=== PATIENT | female | born 2000 | race African-American/Black ===

== ENCOUNTER 2024-01-13 13:36 | Emergency (ER) | payer MEDICAID ==
[~2024-01-13] VITALS: Ht 172.7 cm; Wt 105.0 kg
[2024-01-13 13:57] VITALS: BP 120/78; RESP 18; TEMP 98.1; O2SAT 98
[2024-01-13 13:58] VITALS: PULSE 91; O2SAT 100
== END 2024-01-13 16:00 | disposition left against medical advice (07) ==
LOC: ER 13:36
DX: R50.9 Fever, unspecified (principal); R19.7 Diarrhea, unspecified; Z53.21 Procedure and treatment not carried out due to patient leaving prior to being seen by health care provider